=== PATIENT | female | born 1970 | race Hispanic/Latino ===

== ENCOUNTER 2019-10-08 01:35 | Emergency (ER) | payer SELFPAY ==
[2019-10-08] MEDS ORDERED: PROMETHAZINE HCL 25 MG/ML 1ML AMPULE IM ONE (01:36)
[2019-10-08] MEDS ORDERED: KETOROLAC TROMETHAMINE 60 MG/2 ML VIAL ONE (01:58)
[2019-10-08] MEDS ORDERED: LIDOCAINE HCL 2% VISCOUS 15 ML UDCUP ONE (01:59)
[2019-10-08] MEDS ORDERED: ACETAMINOPHEN EXTRA STRENGTH 500 MG TABLET ONE (02:43)
[2019-10-08] MEDS ORDERED: CLINDAMYCIN HCL 150 MG CAP ONE (02:58)
[2019-10-08] MEDS ORDERED: CYCLOBENZAPRINE HCL 10 MG TABLET ONE (02:59)
== END 2019-10-08 03:29 | disposition home or self-care (01) ==
LOC: EDH 01:35
DX: S00.532A Contusion of oral cavity, initial encounter (principal); U07.1 COVID-19; K04.7 Periapical abscess without sinus; G44.209 Tension-type headache, unspecified, not intractable; E11.9 Type 2 diabetes mellitus without complications; I10 Essential (primary) hypertension; X58.XXXA Exposure to other specified factors, initial encounter; Y93.89 Activity, other specified; Y92.89 Other specified places as the place of occurrence of the external cause; Y99.8 Other external cause status
CPT/HCPCS: 36415; 87633; 87804 ×2; 96372 ×2; 99284; J1885; J2550; U0003

== ENCOUNTER 2020-02-13 02:19 | Emergency (ER) | payer OTHER ==
[2020-02-13] MEDS ORDERED: HYDROCODONE/ACETAMINOPHEN 5/325 MG TAB ONE (03:10)
== END 2020-02-13 04:15 | disposition home or self-care (01) ==
LOC: EDH 02:19
DX: S76.011A Strain of muscle, fascia and tendon of right hip, initial encounter (principal); S80.01XA Contusion of right knee, initial encounter; E11.9 Type 2 diabetes mellitus without complications; I10 Essential (primary) hypertension; Z90.710 Acquired absence of both cervix and uterus; W01.0XXA Fall on same level from slipping, tripping and stumbling without subsequent striking against object, initial encounter; Y93.89 Activity, other specified; Y92.89 Other specified places as the place of occurrence of the external cause; Y99.8 Other external cause status
CPT/HCPCS: 73552

== ENCOUNTER 2023-05-20 01:05 | Emergency (ER) | payer BC ==
[~2023-05-20] VITALS: Ht 162.6 cm; Wt 70.3 kg
[2023-05-20 01:36] LABS: APPEARANCE,URINE CLOUDY (CLEAR); BILIRUBIN,URINE NEGATIVE (NEGATIVE); COLOR,URINE DARK-YELLOW (YELLOW); GLUCOSE, URINE (UA) >=1000 mg/dL (NEGATIVE); KETONES,URINE NEGATIVE (NEGATIVE); LEUKOCYTE ESTERASE ,URINE 25 Leu/uL (NEGATIVE); NITRATE,URINE NEGATIVE (NEGATIVE); PROTEIN,URINE NEGATIVE (NEGATIVE); UROBILINOGEN,URINE 0.2 mg/dL (0.2-1.0)
[2023-05-20 01:37] LABS: ADD UA MICROSCOPIC YES
[2023-05-20 01:40] LABS: MUCUS,URINE RARE LPF (None Seen); RBC,URINE 51-100 /HPF (0-1); SQUAMOUS EPITHELIAL CELL,UR MOD /HPF (0-2); UNCLASSIFIED CRYSTAL 6 /HPF (None Seen); YEAST,URINE BUDDING FEW /HPF (None Seen)
[2023-05-20] MEDS: LACTATED RINGERS 1000ML 1,000 ML IV ONE ×2 (02:45→04:52)
[2023-05-20] MEDS: ONDANSETRON 4MG INJ IVP ONE (02:45)
[2023-05-20] MEDS: MORPHINE 4 MG SYG IVP ONE (02:46)
[2023-05-20 03:16] LABS: BASOPHILS # (AUTO) 0.03 K/uL (0.00-0.20); BASOPHILS % (AUTO) 0.3 % (0.0-5.0); EOSINOPHILS # (AUTO) 0.03 K/uL (0.00-0.70); EOSINOPHILS % (AUTO) 0.3 % (0.0-8.0); HEMATOCRIT 40.7 % (36-48); IMMATURE GRANULOCYTE ABSOLUTE 0.09 K/uL (0-1); LYMPHOCYTES % (AUTO) 20.4 % (21.0-51.0); MEAN CORPUSCULAR HEMOGLOBIN 31.9 pg (27.0-33.0); MEAN CORPUSCULAR HGB CONC 35.6 g/dL (32.0-36.0); MEAN CORPUSCULAR VOLUME 89.5 fL (79-99); MONOCYTES # (AUTO) 0.5 K/uL (0.1-1.0); MONOCYTES % (AUTO) 5.3 % (3.0-13.0); NEUTROPHILS # (AUTO) 7.2 K/uL (1.8-7.7); NEUTROPHILS % (AUTO) 72.8 % (40.0-77.0); PLATELET COUNT (AUTO) 302 K/uL (130-400); RED BLOOD CELL COUNT(AUTO) 4.55 MIL/uL (4.00-5.50); RED CELL DISTRIBUTION WIDTH 11.6 % (11.0-15.5); WHITE BLOOD COUNT (AUTO) 9.9 K/uL (4.8-10.8)
[2023-05-20 03:26] LABS: CREATININE 0.7 mg/dL (0.5-1.5); POTASSIUM 3.8 mmol/L (3.5-5.1)
[2023-05-20 03:30] LABS: ALBUMIN 3.6 g/dL (3.5-5.0); BILIRUBIN,TOTAL 0.4 mg/dL (0.2-1.0); TOTAL PROTEIN, SERUM 7.9 g/dL (6.0-8.3)
[2023-05-20] MEDS: KETOROLAC 30MG VIAL (30MG/ML) ONE (04:52)
[2023-05-20] MEDS: KETOROLAC 30MG VIAL (30MG/ML) IVP ONE (04:52)
[2023-05-20] MEDS: CEFTRIAXONE 1G VIAL IVPB ONE (05:02)
[2023-05-20] MEDS: PHENAZOPYRIDINE HCL 200 MG TABLET PO ONE (05:02)
[2023-05-20] MEDS ORDERED: PHEN-847 PO (05:24)
[2023-05-20] MEDS ORDERED: CEPH500T PO (05:24)
[2023-05-20] MEDS: INSULIN HUMULIN R 100 UNIT/ML 3ML IV ONE (05:37)
[2023-05-20] MEDS: INSULIN HUMULIN R 100 UNIT/ML 3ML ONE (05:38)
[2023-05-20 06:59] VITALS: BP 129/69; PULSE 78; RESP 18; O2SAT 98
== END 2023-05-20 07:03 | disposition home or self-care (01) ==
LOC: EDH 01:05
DX: N30.00 Acute cystitis without hematuria (principal); R10.30 Lower abdominal pain, unspecified; E11.65 Type 2 diabetes mellitus with hyperglycemia; I10 Essential (primary) hypertension; Z90.49 Acquired absence of other specified parts of digestive tract
CPT/HCPCS: 99284; 74176; 96365; 96375; 96361; 80053; 85025; 87088; 82948 ×2; 81001; 36415; J1815; J7120 ×2; J0696; J2405; J2270; J1885

== ENCOUNTER 2024-02-21 19:17 | Emergency (ER) | payer BC ==
[~2024-02-21] VITALS: Ht 162.6 cm; Wt 67.6 kg
[~2024-02-21 19:17] MED LIST: CEPH500T PO; PHEN-847 PO
--- NOTE | 2024-02-21 19:39 | ERN ---
ED Note History of Present Illness Stated Complaint: EPIGASTRIC PAIN RADIATING TO BACK, SOB Chief Complaint: Multiple Complaints Time Seen by MD: 19:25 Dictation: PATIENT IS A 54-YEAR-OLD FEMALE COMING IN TODAY WITH EPIGASTRIC PAIN THAT RADIATES TO THE RIGHT UPPER QUADRANT THAT SHE HAS HAD FOR THREE MONTHS. SHE DENIES FEVER CHILLS NAUSEA VOMITING NO CHEST PAIN. SHE STATES SHE HAS A HISTORY OF GASTROPARESIS AND GASTRITIS. SHE HAS SEEN DR. MCKAYLA Victor IN [place] AND HAD AN EGD DONE AND WAS PLACED ON GABAPENTIN AND PEPCID TOLD SHE HAD GASTRITIS AND GASTROPARESIS. SHE STATES SHE HAS BEEN ON THE MEDICATIONS FOR THREE MONTHS AND STATES IT DOES NOT HELP SHE IS DISSATISFIED WITH HIS CARE AND WANTS ADDITIONAL HELP. SHE STATES SHE ATE A BOTH A2 HOURS PRIOR TO ARRIVAL AND SOON SHE STARTED EATING THE PAIN TO EPIGASTRIUM AND RIGHT UPPER QUADRANT GOT WORSE. Allergies: Coded Allergies: No Known Drug Allergies (Unverified Allergy, Unknown, 10/08/19) Home Meds Active Scripts Phenazopyridine HCl (Pyridium) 200 Mg Tab, 200 MG PO TID PRN for PAIN, #9 TAB Prov:MARY MACK MD 05/20/23 Cephalexin (Cephalexin) 500 Mg Tablet, 500 MG PO TID, #12 TAB start on 05/21/23 Prov:MARY MACK MD 05/20/23 Past Medical History Past Medical History: Diabetes-Type I, Diabetes-Type II, Hypertension, Other Additional Past Medical Hx: ACID REFLUX, GALLSTONES Surgical History: Hysterectomy, None Social History: Negative History: Not Applicable RN Note Reviewed/Agreed w/PFSH: Yes Review of System Dictation CONSTITUTIONAL: Negative except for HPI HEAD/FACE: Negative except for HPI EENT: Negative except for HPI RESPIRATORY: Negative except for HPI GASTROINTESTINAL/ABDOMINAL: Negative except for HPIEpigastric pain that radiates to right upper quadr GENITOURINARY: Negative except for HPI MUSCULOSKELETAL: Negative except for HPI INTEGUMENTARY: Negative except for HPI NEUROLOGICAL/PSYCH: Negative except for HPI HEMATOLOGIC/LYMPHATIC: Negative except for HPI All Systems Negative, Except as noted above. 13 point review of systems assessed and all negative except for above. Initial Vital Sign VS Vital Signs Date Time Temp Pulse Resp B/P (MAP) Pulse Ox O2 Delivery O2 Flow Rate FiO2 02/21/24 19:19 97.3 88 16 150/98 99 Room Air 02/21/24 21:24 0 21 Physical Exam Dictation Vital Signs reviewed General Appearance: Alert, oriented x 3, Moderate acute distress, well developed, nourished. Head and Face: non-traumatic. Eyes: PERRL, pink conjunctivas, eyelid no trauma, anterior chamber with arcus senilis. Ears: Pinnas intact and no signs of trauma or erythema ear canals clear and no discharge TM no erythema Nose: No discharge, no bleeding. Oropharynx: Mouth normal, tongue pink, pharynx clear,no erythema, tonsils no exudates, no abscesses noted, mucous membrane moist Neck: Supple, non-tender, no thyromegaly, no masses, no JVD, no bruits Breast:Deferred Chest:No tenderness, no crepitus, no paradoxical movement, no retractions Lungs:Clear, well-ventilated, symmetric, no rales, no wheezing, no rhonchi, no stridor, good breath sounds bilaterally Heart: Regular rate, regular rhythm, no murmur, no gallops Vascular: no peripheral edema, Abdomen: Soft, positive bowel sounds, nondistended, no guarding, mild Samson's sign with a epigastric tenderness. Rectal: Deferred Genital: Deferred Neurological: Normal speech, motor function intact, sensory function intact Musculoskeletal: Neck nontender, full range of motion, back nontender, full range of motion, Extremities: nontender, full range of motion Skin: Color pink, dry, no turgor, no rash, no lacerations, no abrasions, no contusions. Lymphatic: Deferred Results (Laboratory/Radiology) Laboratory/Radiology Laboratory Tests Test 02/21/24 19:45 White Blood Count 8.9 K/uL (4.8-10.8) Red Blood Count 4.77 MIL/uL (4.00-5.50) Hemoglobin 14.9 g/dL (12.0-16.0) Hematocrit 42.9 % (36-48) Mean Corpuscular Volume 89.9 fL (79-99) Mean Corpuscular Hemoglobin 31.2 pg (27.0-33.0) Mean Corpuscular Hemoglobin Concent 34.7 g/dL (32.0-36.0) Red Cell Distribution Width 11.9 % (11.0-15.5) Platelet Count 346 K/uL (130-400) Mean Platelet Volume 10.0 fL (7.5-10.5) Immature Granulocyte % (Auto) 0.4 % (0-1) Neutrophils (%) (Auto) 49.7 % (40.0-77.0) Lymphocytes (%) (Auto) 41.2 % (21.0-51.0) Monocytes (%) (Auto) 6.2 % (3.0-13.0) Eosinophils (%) (Auto) 1.9 % (0.0-8.0) Basophils (%) (Auto) 0.6 % (0.0-5.0) Neutrophils # (Auto) 4.5 K/uL (1.8-7.7) Lymphocytes # (Auto) 3.7 K/uL (1.0-4.8) Monocytes # (Auto) 0.6 K/uL (0.1-1.0) Eosinophils # (Auto) 0.17 K/uL (0.00-0.70) Basophils # (Auto) 0.05 K/uL (0.00-0.20) Absolute Immature Granulocyte (auto 0.04 K/uL (0-1) Nucleated Red Blood Cells 0.0 % (0.0-0.19) Urine Color COLORLESS (YELLOW) Urine Appearance CLEAR (CLEAR) Urine pH 5.0 (5.0-8.0) Urine Specific [place] 1.023 (1.001-1.031) Urine Protein NEGATIVE mg/dL (NEGATIVE) Urine Glucose (UA) >=1000 mg/dL (NEGATIVE) H Urine Ketones NEGATIVE mg/dL (NEGATIVE) Urine Occult Blood NEGATIVE (NEGATIVE) Urine Nitrate NEGATIVE (NEGATIVE) Urine Bilirubin NEGATIVE mg/dL (NEGATIVE) Urine Urobilinogen 0.2 mg/dL (0.2-1.0) Urine Leukocyte Esterase NEGATIVE Eduardo/uL Urine RBC 0-1 /HPF (0-1) Urine WBC 2-5 /HPF (0-1) H Urine Squamous Epithelial Cells RARE /HPF (0-2) Urine Bacteria None /HPF (None Seen) Sodium Level 136 mmol/L (136-145) Potassium Level 3.3 mmol/L (3.5-5.1) L Chloride Level 98 mmol/L (101-111) L Carbon Dioxide Level 29 mmol/L (21-32) Blood Urea Nitrogen 9 mg/dL (7-18) Creatinine 0.6 mg/dL (0.5-1.0) Glomerular Filtration Rate Calc 105 mL/min (>90) Random Glucose 134 mg/dL (70-105) H Total Calcium 9.6 mg/dL (8.5-10.1) Total Bilirubin 0.4 mg/dL (0.2-1.0) Direct Bilirubin 0.1 mg/dL (0.0-0.3) Aspartate Amino Transf (AST/SGOT) 13 U/L (10-37) Alanine Aminotransferase (ALT/SGPT) 18 U/L (12-78) Alkaline Phosphatase 74 U/L (50-136) Troponin I High Sensitivity < 4 ng/L (4-50) L Total Protein 8.0 g/dL (6.0-8.3) Albumin 4.0 g/dL (3.5-5.0) Lipase 38 U/L (16-77) US ABDOMINAL RUQ\E\LTD HISTORY: Abdominal pain COMPARISON: CT from 05/20/2023 TECHNIQUE: Right upper quadrant abdominal ultrasound study was performed. FINDINGS: Liver measures 18 cm. The visualized portion of the pancreas is within normal limits. Liver is echogenic consistent with liver parenchymal disease. No gallstone is seen. Common duct measures 4 mm. No evidence of gallbladder wall thickening is seen. Right kidney measures 12.5 x 4.9 x 4.2 cm. No hydronephrosis is seen of the right kidney. IMPRESSION: 1. No gallstones or ductal dilatation is seen. 2. No hydronephrosis is seen. Labs Reviewed?: Yes EKG Comment: EKG normal sinus rhythm/ heart rate 87/axis normal/ no ectopy ED Course ED Course Orders Procedure Category Date Status Time Vital Signs Per CPOE 02/21/24 Transmitted Routine 19:20 Saline Lock Iv CPOE 02/21/24 Transmitted 19:20 Cbc With Differential LAB 02/21/24 Complete 19:20 Lipase LAB 02/21/24 Complete 19:20 Urinalysis Profile LAB 02/21/24 Complete 19:20 Basic Metabolic Panel LAB 02/21/24 Complete 19:20 Hepatic Function Panel LAB 02/21/24 Complete 19:20 12 Lead Ekg Tracing- EKG 02/21/24 Logged Technical 19:20 Troponin I High LAB 02/21/24 Complete Sensitivity 19:20 Chest 1vw RAD 02/21/24 Resulted 19:20 Us Abdominal Ruq\Ltd US 02/21/24 Resulted 19:37 0.9%Nacl 1000ml (Ns PHA 02/21/24 Complete 1000ml) 20:00 Ketorolac PHA 02/21/24 Complete Tromethamine 30mg/Ml 20:00 Famotidine 20mg Vial PHA 02/21/24 Complete (Pepcid 20mg Vial) 20:00 Potassium Bicarb/Cit PHA 02/21/24 Complete Ac 25meq (K-Lyte Ta 23:00 Current Medications Medications (Trade) Dose Ordered Sig/Sami Route PRN Reason Start Time Stop Time Status Last Admin Dose Admin Famotidine (Pepcid 20mg Vial) 20 mg ONCE ONCE IV 02/21/24 20:00 02/21/24 20:01 DC 02/21/24 20:24 Ketorolac Tromethamine (toRADol) 30 mg ONCE ONCE IVP 02/21/24 20:00 02/21/24 20:01 DC 02/21/24 20:24 Potassium Bicarbonate (K-Lyte Tablet Eff 25 Meq Tablet.eff) 25 meq ONCE ONCE PO 02/21/24 23:00 02/21/24 23:01 DC 02/21/24 22:50 Sodium Chloride 1,000 ml @ 0 mls/hr ONCE ONCE IV 02/21/24 20:00 02/21/24 20:01 DC 02/21/24 20:24 Vital Signs Date Time Temp Pulse Resp B/P (MAP) Pulse Ox O2 Delivery O2 Flow Rate FiO2 02/21/24 22:32 98.1 82 16 148/82 99 Room Air* 0 21 02/21/24 21:24 98.1 79 16 150/78 98 Room Air* 0 21 02/21/24 19:19 97.3 88 16 150/98 99 Room Air HEART Score Response (Comments) Value History: Low suspicion (0) 0 Age: 45-65yrs (+1) 1 Risk Factors: 1-2 risk factors (+1) 1 Initial Troponin: Normal limit (0) 0 Total 2 Medical Decision Making MDM MEDICAL DISCHARGE MAKING BASED ON ULTRASOUND AND LABS. NO GALLSTONES NO FATTY LIVER LABS ARE NORMAL EXCEPT FOR HYPOKALEMIA PATIENT DISCHARGED HOME WITH A ACUTE GASTRITIS HYPOKALEMIA TOLD TO SEE HER DOCTOR IN THE NEXT 1- DX & DISP Disposition: Discharge Departure Impression: Primary Impression: Acute gastritis Additional Impressions: Hypokalemia, Biliary colic symptom Condition: Stable Scripts Omeprazole (Omeprazole) 40 Mg Capsule.dr 1 CAP PO DAILY for 30 Days, #30 CAP 0 Refills Prov: CLAUDIA LYNN AIR POLLUTION ANALYST 02/21/24 Sucralfate (Carafate) 1 Gram Tablet 1 GM PO ACHS for 10 Days, #40 TAB Prov: CLAUDIA LYNN AIR POLLUTION ANALYST 02/21/24 Additional Instructions: FOLLOW-UP WITH PRIMARY CARE PROVIDER IN 1 TO 2 DAYS. TAKE MEDICATIONS DIRECTED HERE IN THE EMERGENCY ROOM. OKAY TO CONTINUE HOME MEDICATIONS UNLESS OTHERWISE DISCUSSED DURING YOUR VISIT IN THE EMERGENCY ROOM TODAY. RETURN TO YOUR NEAREST EMERGENCY ROOM IF SYMPTOMS WORSEN OR IF THERE IS NO IMPROVEMENT. CALL 911 IF YOU NEED IMMEDIATE ASSISTANCE. TAKE TYLENOL OR MOTRIN [id number] NEEDED AND IF NO CONTRAINDICATIONS ARE PRESENT. INCREASE ORAL HYDRATION. A WOUND CULTURE OR URINE CULTURE WAS ORDERED HERE IN THE EMERGENCY ROOM DEPARTMENT PLEASE FOLLOW-UP WITH PRIMARY CARE PROVIDER AND ADVISE THEM TO GET REPEAT PORTS FROM OUR FACILITY. IF YOU HAD ANY MONO WRAP/SPLINTS THAT WERE APPLIED HERE, PLEASE DO NOT REMOVE THEM UNTIL YOU SEE YOUR PRIMARY CARE OR SPECIALTY. TAKE CARAFATE DIRECTED UNTIL GONE. TAKE OMEPRAZOLE DAILY DIRECTED. FOLLOW A BLAND DIET WITH WATER FOR FLUIDS ONLY AND CALL APPLICATIONS DEVELOPER FOR APPOINTMENT IN 1-2 DAYS. Referrals: SELF,REFERRAL (PCP) MARCY ARREGUIN MD Time of Disposition: 23:10 I have reviewed the case, and I agree with, Diagnosis and Plan CLAUDIA LYNN NP Feb 21, 2024 19:39
[2024-02-21 19:57] LABS: BASOPHILS # (AUTO) 0.05 K/uL (0.00-0.20); BASOPHILS % (AUTO) 0.6 % (0.0-5.0); EOSINOPHILS # (AUTO) 0.17 K/uL (0.00-0.70); EOSINOPHILS % (AUTO) 1.9 % (0.0-8.0); HEMATOCRIT 42.9 % (36-48); IMMATURE GRANULOCYTE ABSOLUTE 0.04 K/uL (0-1); LYMPHOCYTES # (AUTO) 3.7 K/uL (1.0-4.8); LYMPHOCYTES % (AUTO) 41.2 % (21.0-51.0); MEAN CORPUSCULAR HEMOGLOBIN 31.2 pg (27.0-33.0); MEAN CORPUSCULAR HGB CONC 34.7 g/dL (32.0-36.0); MEAN CORPUSCULAR VOLUME 89.9 fL (79-99); MONOCYTES # (AUTO) 0.6 K/uL (0.1-1.0); MONOCYTES % (AUTO) 6.2 % (3.0-13.0); NEUTROPHILS # (AUTO) 4.5 K/uL (1.8-7.7); NEUTROPHILS % (AUTO) 49.7 % (40.0-77.0); PLATELET COUNT (AUTO) 346 K/uL (130-400); RED BLOOD CELL COUNT(AUTO) 4.77 MIL/uL (4.00-5.50); RED CELL DISTRIBUTION WIDTH 11.9 % (11.0-15.5); WHITE BLOOD COUNT (AUTO) 8.9 K/uL (4.8-10.8)
[2024-02-21 20:01] LABS: ADD UA MICROSCOPIC YES; APPEARANCE,URINE CLEAR (CLEAR); BILIRUBIN,URINE NEGATIVE (NEGATIVE); COLOR,URINE COLORLESS (YELLOW); GLUCOSE, URINE (UA) >=1000 mg/dL (NEGATIVE); KETONES,URINE NEGATIVE (NEGATIVE); LEUKOCYTE ESTERASE ,URINE NEGATIVE Leu/uL (NEGATIVE); NITRATE,URINE NEGATIVE (NEGATIVE); OCCULT BLOOD,URINE NEGATIVE (NEGATIVE); PROTEIN,URINE NEGATIVE (NEGATIVE); UROBILINOGEN,URINE 0.2 mg/dL (0.2-1.0)
[2024-02-21 20:02] LABS: RBC,URINE 0-1 /HPF (0-1); SQUAMOUS EPITHELIAL CELL,UR RARE /HPF (0-2)
[2024-02-21 20:04] LABS: CREATININE 0.6 mg/dL (0.5-1.0); POTASSIUM 3.3 mmol/L (3.5-5.1)
--- NOTE | 2024-02-21 20:07 | HMCIMG ---
US ABDOMINAL RUQ\E\LTD HISTORY: Abdominal pain COMPARISON: CT from 05/20/2023 TECHNIQUE: Right upper quadrant abdominal ultrasound study was performed. FINDINGS: Liver measures 18 cm. The visualized portion of the pancreas is within normal limits. Liver is echogenic consistent with liver parenchymal disease. No gallstone is seen. Common duct measures 4 mm. No evidence of gallbladder wall thickening is seen. Right kidney measures 12.5 x 4.9 x 4.2 cm. No hydronephrosis is seen of the right kidney. IMPRESSION: 1. No gallstones or ductal dilatation is seen. 2. No hydronephrosis is seen.
[2024-02-21 20:13] LABS: BILIRUBIN,DIRECT 0.1 mg/dL (0.0-0.3); BILIRUBIN,TOTAL 0.4 mg/dL (0.2-1.0)
[2024-02-21] MEDS: 0.9%NACL 1000ML 1,000 ML IV ONE (20:24)
[2024-02-21] MEDS: ketOROlac 30MG VIAL (30MG/ML) IVP ONE (20:24)
[2024-02-21] MEDS: FAMOTIDINE 20MG VIAL IV ONE (20:24)
--- NOTE | 2024-02-21 20:27 | HMCIMG ---
CHEST 1VW HISTORY: Shortness of breath COMPARISON: None FINDINGS: A frontal projection of the chest was obtained. Prominent interstitial markings are seen with possible superimposed infiltrates. The heart is normal in size. Degenerative changes are seen. No evidence of aortic calcification is seen. IMPRESSION: 1. Prominent interstitial markings are seen with possible superimposed infiltrates.
[2024-02-21 22:32] VITALS: BP 148/82; PULSE 82; RESP 16; TEMP 98.1; O2SAT 99
[2024-02-21] MEDS: PoTASSium BIcarbonate/CIT AC 25 MEQ TABLET.EFF PO ONE (22:50)
[2024-02-21] MEDS ORDERED: SUCR1TAB28 PO (23:11)
[2024-02-21] MEDS ORDERED: OMEP40CA21 PO (23:11)
--- NOTE | 2024-02-22 07:50 | EKG ---
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
== END 2024-02-21 23:22 | disposition home or self-care (01) ==
LOC: EDH 19:17
DX: K29.00 Acute gastritis without bleeding (principal); K80.50 Calculus of bile duct without cholangitis or cholecystitis without obstruction; E87.6 Hypokalemia; E11.9 Type 2 diabetes mellitus without complications; I10 Essential (primary) hypertension; K21.9 Gastro-esophageal reflux disease without esophagitis; Z79.899 Other long term (current) drug therapy; Z90.710 Acquired absence of both cervix and uterus
CPT/HCPCS: 99284; 96374; 76705; 71045; 96375; 80076; 84484; 80048; 83690; 85025; 81001; 36415; 93005; J3490; J7030; J1885